=== PATIENT | female | born 1985 | race Caucasian/White ===

== ENCOUNTER 2022-10-08 11:24 | Emergency (ER) | payer MEDICAID ==
[~2022-10-08] VITALS: Ht 152.4 cm; Wt 72.0 kg
[2022-10-08 11:46] VITALS: BP 142/75
[2022-10-08] MEDS ORDERED: HYDR-3965 PO (12:10)
[2022-10-08] MEDS ORDERED: AMOX-117 PO (12:10)
== END 2022-10-08 12:32 | disposition home or self-care (01) ==
LOC: ER 11:24
DX: K04.7 Periapical abscess without sinus (principal)
CPT/HCPCS: 99283